=== PATIENT | female | born 1980 | race Caucasian/White ===

== ENCOUNTER 2023-08-04 23:35 | Emergency (ER) | payer OTHER ==
[~2023-08-04] VITALS: Ht 165.1 cm; Wt 99.0 kg
[2023-08-05 00:06] VITALS: O2SAT 100
[2023-08-05 03:42] VITALS: BP 126/85; PULSE 89; RESP 16; TEMP 98.4
== END 2023-08-05 03:50 | disposition home or self-care (01) ==
LOC: ER 23:57
DX: S00.83XA Contusion of other part of head, initial encounter (principal); Z90.49 Acquired absence of other specified parts of digestive tract; W01.0XXA Fall on same level from slipping, tripping and stumbling without subsequent striking against object, initial encounter; Y93.89 Activity, other specified; Y92.89 Other specified places as the place of occurrence of the external cause; Y99.8 Other external cause status
CPT/HCPCS: 70486; 81025; 99284

== ENCOUNTER 2024-02-01 17:24 | Emergency (ER) | payer SELFPAY ==
[~2024-02-01] VITALS: Ht 177.8 cm; Wt 86.0 kg
[2024-02-01 17:28] VITALS: PULSE 64; RESP 16
[2024-02-01 17:34] VITALS: BP 153/90; TEMP 98.2; O2SAT 100
[2024-02-01] MEDS: TETRACAINE 0.5% OPHTH DROPS 4ML RIGHTEYE ONE (19:30)
[2024-02-01] MEDS: FLUORESCEIN SODIUM 1MG/STRIP RIGHTEYE ONE (19:30)
[2024-02-01] MEDS ORDERED: KETO-98 RIGHTEYE (19:43)
[2024-02-01] MEDS ORDERED: POLY15DR31 RIGHTEYE (19:44)
== END 2024-02-01 21:13 | disposition home or self-care (01) ==
LOC: ER 17:24
DX: H10.9 Unspecified conjunctivitis (principal); Z90.49 Acquired absence of other specified parts of digestive tract
CPT/HCPCS: 81025; 99282